=== PATIENT | male | born 1950 | race African-American/Black ===

== ENCOUNTER 2017-11-19 05:46 | Emergency (ER) | payer BC ==
[~2017-11-19] VITALS: Ht 188 cm; Wt 99.8 kg
[2017-11-19 06:06] VITALS: BP 219/91
--- NOTE | 2017-11-19 06:20 | PHYS DOC ---
Adult General Chief Complaint Chief Complaint: INSECT BITE HPI HPI Patient is a 67 year old male who presents with right hand infection. Patient has had redness and soft-tissue swelling over the last 4 days. He suspects secondary to an insect bite. Pain and swelling over the dorso-lateral aspect. No fever or chills. Denies additional complaints. Review of Systems Review of Systems Constitutional: Denies fever or chills HENT: Denies nasal congestion Respiratory: Denies cough or shortness of breath Cardiovascular: No additional information not addressed in HPI Musculoskeletal: Denies back pain Integument: as documented below Neurologic: Denies headache All other systems were reviewed and found to be within normal limits, except as documented in this note. Allergies Allergies Allergies Coded Allergies Type Severity Reaction Last Updated Verified No Known Drug Allergies 11/19/17 No Physical Exam Physical Exam Constitutional: Well developed, well nourished, no acute distress, non-toxic appearance HENT: Normocephalic, atraumatic, bilateral external ears normal, oropharynx moist Neck: Normal range of motion Cardiovascular:Heart rate regular rhythm, no murmur Lungs & Thorax: Bilateral breath sounds clear to auscultation Skin: Warm, dry, no erythema, no rash Back: No tenderness Extremities: local soft-tissue swelling and warmth to touch over the dorsal aspect of the right hand primarily b/w thumb and index finger. 2+ radial pulses. Flexion/extension mechanism intact. No pain over flexor tendon, no fusiform swelling, no pain with passive flexion Neurologic: Alert and oriented X 3 Psychologic: Affect normal EKG EKG [] Radiology/Procedures Radiology/Procedures [] Course & Med Decision Making Course & Med Decision Making Pertinent Labs and Imaging studies reviewed. (See chart for details) Patient is seen and examined in the ER for cellulitis of the right hand. Placed on keflex. Tetanus imm updated. Advised to f/u with primary care physician or return to the ER for any new or worsening symptoms. Dragon Disclaimer [place] Disclaimer This electronic medical record was generated, in whole or in part, using a voice recognition dictation system. Departure Departure Referrals: ARNULFO FERNANDEZ (PCP) HELEN WASHINGTON DO Nov 19, 2017 06:20
[2017-11-19] MEDS ORDERED: IBUP-1060 PO (06:23)
[2017-11-19] MEDS ORDERED: CEPH-264 PO (06:23)
[2017-11-19] MEDS: CEPHALEXIN 250 MG CAPSULE. PO ONE (06:38)
[2017-11-19] MEDS: DIPHTH,PERTUSS(ACELL),TET TOX 0.5 ML DISP.SYRIN. VAX IM ONE (06:38)
== END 2017-11-19 06:45 | disposition home or self-care (01) ==
LOC: ER 05:46
DX: L03.113 Cellulitis of right upper limb (principal)
CPT/HCPCS: 90471; 90715; 99283